=== PATIENT | male | born 1935 | race Caucasian/White ===

== ENCOUNTER → 2016-09-04 | Outpatient (CLI) | payer MEDICARE, OTHER ==
[~2016-09-04] MED LIST: ACET-2930 PO; FLEC50TA2 PO; HYDR-2164 PO; LEVO100T12 PO; METO25TA6 PO; PRED1TAB PO; RIVA20TA PO
--- NOTE | 2016-09-04 11:24 | DI ---
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 Postoperative changes noted in the right hilum. No consolidation, pleural effusion or pneumothorax. Heart size and mediastinal contours are stable. Pulmonary vascularity is normal. No significant skeletal abnormality. Impression: Stable chest without radiographic evidence of pulmonary metastatic disease. .
== END ==
LOC: IMA 10:47
PROVIDERS: ATTEND Internal Medicine Medical Oncology
DX: C34.11 Malignant neoplasm of upper lobe, right bronchus or lung (principal)

== ENCOUNTER 2016-12-04 08:00 | Observation (INO) ==
--- OUTSIDE RECORDS SUMMARY | 2017-01-08 07:58 | External Medical Summary | CCD ---
:1935 Author Name WILVERMATTHEWSUNNY Address [address] [place], [place] [id number] Care Team Providers Name Role Phone FRANCO TINOCO Attending Physician Unavailable Vital Signs Unknown or Not Available. Allergies Unknown or Not Available. Procedures Unknown or Not Available. History of Immunizations Unknown or Not Available. Problems Unknown or Not Available. Results Unknown or Not Available. Active Medications Unknown or Not Available. Medications Administered During Visit Unknown or Not Available. 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 Discharge Instructions You were admitted to [facility] on 10/02/2015 10:16 with a principal diagnosis of Presence of right artificial hip joint You were discharged from [facility] Should you have any questions prior to discharge, please contact a member of your healthcare team. If you have left the hospital and have any questions, please contact your primary care physician. Chief Complaint and Reason For Visit Chief Complaint Date of Onset PT Function Status Unknown or Not Available. Plan of Care Unknown or Not Available. Referral/Transition of Care Unknown or Not Available.
--- OUTSIDE RECORDS SUMMARY | 2017-01-08 07:58 | External Medical Summary | CCD ---
:1935 Author Name SUNNY PETTIT Address [address] [place], [place] [id number] Care Team Providers Name Role Phone NICOLE MORAN Attending Physician Unavailable Vital Signs Unknown or Not Available. Allergies Unknown or Not Available. Procedures Unknown or Not Available. History of Immunizations Unknown or Not Available. Problems Unknown or Not Available. Results FERRITIN - Collect Date/Time: 05/17/2015 09:40 Test Name Code Test Result Test Units Test Ref Range FERRITIN 118 ng/mL L=8 H=388 FOLATE (FOLIC ACID) - Collect Date/Time: 05/17/2015 09:40 Test Name Code Test Result Test Units Test Ref Range FOLATE 9.6 ng/mL L=8.6 H=58.9 IRON AND TIBC - Collect Date/Time: 05/17/2015 09:40 Test Name Code Test Result Test Units Test Ref Range IRON 46 ug/dL L=50 H=175 TIBC 331 ug/dL L=250 H=450 IRON SAT 14 % L=20 H=50 VITAMIN B12 - Collect Date/Time: 05/17/2015 09:40 Test Name Code Test Result Test Units Test Ref Range VITAMIN B12 579 pg/mL L=193 H=986 Active Medications Unknown or Not Available. Medications Administered During Visit Unknown or Not Available. Encounters Encounter Diagnosis Diagnosis Code Start Date Anemia, unspecified D649 05/17/2015 Social History Smoking Status Code Start Date End Date Former smoker [id number] Patient Decision Aids Unknown or Not Available. Discharge Instructions You were admitted to [facility] on 10/2015 with a principal diagnosis of Anemia, unspecified. You were discharged from [facility] on 05/17/2015. Should you have any questions prior to discharge, please contact a member of your healthcare team. If you have left the hospital and have any questions, please contact your primary care physician. Chief Complaint and Reason For Visit Chief Complaint Date of Onset LAB Function Status Unknown or Not Available. Plan of Care Unknown or Not Available. Referral/Transition of Care Unknown or Not Available.
--- OUTSIDE RECORDS SUMMARY | 2017-01-08 07:58 | External Medical Summary | CCD ---
:1935 Author Name DAMION VERDIN Address [address] [place], [place] [id number] Care Team Providers Name Role Phone JAMES YANES Attending Physician Unavailable NICOLE MORAN Rounding (Secondary) Physician Unavailable Vital Signs Unknown or Not Available. Allergies Unknown or Not Available. Procedures Unknown or Not Available. History of Immunizations Unknown or Not Available. Problems Unknown or Not Available. Results COMP METABOLIC - Collect Date/Time: 08/29/2014 10:15 Test Name Code Test Result Test Units Test Ref Range GLUCOSE 107 mg/dL L=70 H=110 BUN 11 mg/dL L=7 H=18 CREATININE 1.00 mg/dL L=0.60 H=1.30 AGE 79 YEARS GFR 76.6 SODIUM 139 mmol/L L=136 H=145 POTASSIUM 3.6 mmol/L L=3.5 H=5.1 CHLORIDE 101 mmol/L L=98 H=107 CO2 32 mmol/L L=21 H=32 CALCIUM 9.4 mg/dL L=8.5 H=10.1 AST 9 U/L L=15 H=37 ALT 17 U/L L=12 H=78 ALKALINE PHOS 125 U/L L=46 H=116 TOTAL PROTEIN 7.8 g/dL L=6.4 H=8.2 ALBUMIN 3.6 g/dL L=3.4 H=5.0 TOTAL BILI 0.50 mg/dL L=0.00 H=1.00 CBC W/ DIFF - Collect Date/Time: 08/29/2014 10:15 Test Name Code Test Result Test Units Test Ref Range WBC 10.0 x10^3 L=4.8 H=10.8 RBC 4.50 x10^6 L=4.70 H=6.10 HEMOGLOBIN 14.1 g/dL L=14.0 H=18.0 HEMATOCRIT 42.3 % L=42.0 H=52.0 MCV 94 fL L=80 H=100 MCH 31.4 pg L=27.0 H=33.0 MCHC 33.4 g/dL L=33.0 H=37.0 RDW 13.1 % L=11.5 H=14.5 PLATELETS 328 x10^3 L=150 H=450 MPV 6.7 fL L=7.8 H=11.0 NEUTROPHILS 70.9 % L=40.0 H=80.0 LYMPHOCYTES 18.7 % L=20.0 H=45.0 MONOCYTES 7.7 % L=0.0 H=10.0 EOSINOPHILS 2.2 % L=0.0 H=5.0 BASOPHILS 0.5 % L=0.0 H=2.0 SEG 63 %% L=40 H=80 BAND 8 %% L=0 H=5 LYMPH 20 %% L=20 H=45 MONO 6 %% L=0 H=10 EOS 0 %% L=0 H=5 BASO 3 %% L=0 H=2 ATYP LYMPH 0 %% L=0 H=10 META 0 %% L=0 H=1 REFLEX MAN DIFF YES N/A RBC MORPHOLOGY NORMAL N/A Active Medications Unknown or Not Available. Medications Administered During Visit Unknown or Not Available. Encounters Unknown or Not Available. Social History Smoking Status Code Start Date End Date Former smoker [id number] Patient Decision Aids Unknown or Not Available. Discharge Instructions You were admitted to [facility] on 08/29/2014. You were discharged from [facility] on 08/29/2014. Should you have any questions prior to discharge, please contact a member of your healthcare team. If you have left the hospital and have any questions, please contact your primary care physician. Chief Complaint and Reason For Visit Chief Complaint Date of Onset CT CHEST W CONTR/LAB Function Status Unknown or Not Available. Plan of Care Unknown or Not Available. Referral/Transition of Care Unknown or Not Available.
--- OUTSIDE RECORDS SUMMARY | 2017-01-08 07:58 | External Medical Summary | CCD ---
:1935 Author Name SUNNY PETTIT Address [address] [place], [place] [phone] Care Team Providers Name Role Phone PUNEET SORIANO Attending Physician Unavailable JENNIE BENDERing (Secondary) Physician Unavailable Vital Signs Unknown or Not Available. Allergies Unknown or Not Available. Procedures Unknown or Not Available. History of Immunizations Unknown or Not Available. Problems Unknown or Not Available. Results COMP METABOLIC - Collect Date/Time: 05/16/2016 10:31 Test Name Code Test Result Test Units Test Ref Range GLUCOSE 112 mg/dL L=70 H=110 BUN 14 mg/dL L=7 H=18 CREATININE 1.03 mg/dL L=0.60 H=1.30 AGE 80 YEARS GFR 69.5 L=60.0 H=120 SODIUM 137 mmol/L L=136 H=145 POTASSIUM 3.1 mmol/L L=3.5 H=5.1 CHLORIDE 101 mmol/L L=98 H=107 CO2 27 mmol/L L=21 H=32 CALCIUM 9.6 mg/dL L=8.5 H=10.1 AST 17 U/L L=15 H=37 ALT 19 U/L L=12 H=78 ALKALINE PHOS 121 U/L L=46 H=116 TOTAL PROTEIN 7.9 g/dL L=6.4 H=8.2 ALBUMIN 3.6 g/dL L=3.4 H=5.0 TOTAL BILI 0.50 mg/dL L=0.00 H=1.00 CBC W/ DIFF - Collect Date/Time: 05/16/2016 10:31 Test Name Code Test Result Test Units Test Ref Range WBC 10.3 x10^3 L=4.8 H=10.8 RBC 4.54 x10^6 L=4.70 H=6.10 HEMOGLOBIN 13.9 g/dL L=14.0 H=18.0 HEMATOCRIT 40.3 % L=42.0 H=52.0 MCV 89 fL L=80 H=100 MCH 30.6 pg L=27.0 H=33.0 MCHC 34.5 g/dL L=33.0 H=37.0 RDW 12.9 % L=11.5 H=14.5 PLATELETS 323 x10^3 L=150 H=450 MPV 6.9 fL L=7.8 H=11.0 NEUTROPHILS 64.2 % L=40.0 H=80.0 LYMPHOCYTES 22.9 % L=20.0 H=45.0 MONOCYTES 8.8 % L=0.0 H=10.0 EOSINOPHILS 3.4 % L=0.0 H=5.0 BASOPHILS 0.7 % L=0.0 H=2.0 REFLEX MAN DIFF NO N/A UA AUTO W/ MICRO - Collect Date/Time: 05/16/2016 10:40 Test Name Code Test Result Test Units Test Ref Range COLOR Yellow N/A NORMAL: Yellow APPEARANCE Clear N/A NORMAL: Clear GLUCOSE Negative N/A NORMAL: Negative BILIRUBIN Negative N/A NORMAL: Negative KETONE Negative N/A NORMAL: Negative SPEC GRAVITY 1.020 N/A NORMAL: 1.005-1.030 BLOOD Trace-in N/A NORMAL: Negative PROTEIN Negative N/A NORMAL: Negative PH 7.5 N/A NORMAL: 5.0-8.0 UROBILINOGEN 2.0 N/A NORMAL: Negative NITRITE Negative N/A NORMAL: Negative LEUKOCYTES Negative N/A NORMAL: Negative MICRO RBC None Seen N/A NORMAL: 0-2 MICRO WBC 0-2 N/A NORMAL: 0-2 BACTERIA None Seen N/A NORMAL: None-Trace EPI CELLS None Seen N/A NORMAL: 0-15 MUCUS None Seen N/A NORMAL: None-Small AMORPHOUS None Seen N/A NORMAL: None Seen YEAST None Seen N/A NORMAL: None Seen CRYSTALS None Seen N/A NORMAL: None Seen CAST None Seen N/A NORMAL: None Seen URINE CULTURE? NO N/A Active Medications Unknown or Not Available. Medications Administered During Visit Unknown or Not Available. 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 Discharge Instructions You were admitted to [facility] on 05/16/2016 10:26 with a principal diagnosis of Malignant neoplasm of upper lobe , right bronchus or jad You had the following tests done: CBC W/ DIFF COMP METABOLIC UA AUTO W/ MICRO You were discharged from [facility] on 05/16/2016 10:26 Should you have any questions prior to [...]
--- OUTSIDE RECORDS SUMMARY | 2017-01-08 07:58 | External Medical Summary | Continuity of Care Document ---
:1935 Author Organization [facility] Allergies Active Description Code Type Severity Reaction Onset Reported/ Identified Relationship Clinical to Patient Status Yes Pepto-Bismol NKMA N/A N/A Yes statins NKMA N/A N/A Yes bismuth 1159 1 N/A rash, subsalicylat swelling e Yes Statins-Hmg- 02685 3 N/A muscle, Coa 5 joint Reductase pain Inhibitors Medications Problems Procedures Results Encounters ACCT No. Visit Discharge Status Pt. Type Provider Facility Loc./Unit Complaint Date/Time [id number] 06/16/2015 06/16/2015 DIS [facility] [place], [facility] [place] [facility] 13:55:00 23:59[id number] 05/26/2015 05/26/2015 DIS Outpatien [place], [facility] [place] 396 14:03:00 23:59:00 t [facility] [id number] 01/24/2016 01/24/2016 CLS Outpat[facility] [place] 10:15:00 23:59:59 t [facility] [id number] 06/25/2016 ACT Unknown [id number] 09:38:00 [id number] 03/18/2016 ACT Unknown [id number] 14:04:00 [id number] 03/18/2016 ACT Unknown [id number] 13:54:00 [id number] 10/18/2015 ACT Unknown [id number] 08:35:00 [id number] 10/05/2015 ACT Unknown [id number] 07:36:00 [id number] 09/13/2015 ACT Unknown [id number] 11:00:00 [id number] 08/24/2015 ACT Unknown [id number] 15:06:00 [id number] 06/02/2015 ACT Unknown [id number] 12:49:00 [id number] 08/10/2014 ACT Unknown [id number] 10:33:00 [id number] 08/10/2014 ACT Unknown [id number] 10:23:00 [id number] 06/09/2014 ACT Unknown [id number] 12:48:00 [id number] 02/07/2014 ACT Unknown [id number] 11:23:00 [id number] 12/17/2013 ACT Unknown [id number] 10:47:00 [id number] 09/21/2013 ACT Unknown [id number] 10:08:00 [id number] 06/17/2013 ACT Unknown [id number] 13:38:00 [id number] 03/18/2013 ACT Unknown [id number] 09:15:00 [id number] 02/24/2013 ACT Unknown [id number] 09:02:00
--- OUTSIDE RECORDS SUMMARY | 2017-01-08 07:58 | External Medical Summary | CCD ---
:1935 Author Name WILVERMATTHEWSUNNY Address [address] [place], [place] [phone] Care Team Providers Name Role Phone SCOOTER KUMAR Attending Physician Unavailable Vital Signs Unknown or Not Available. Allergies Unknown or Not Available. Procedures Unknown or Not Available. History of Immunizations Unknown or Not Available. Problems Unknown or Not Available. Results Unknown or Not Available. Active Medications Unknown or Not Available. Medications Administered During Visit Unknown or Not Available. Encounters Encounter Diagnosis Diagnosis Code Start Date Stiffness of right knee, not S33444 02/13/2015 elsewhere classified Social History Smoking Status Code Start Date End Date Former smoker [id number] Patient Decision Aids Unknown or Not Available. Discharge Instructions You were admitted to [facility] on 09/2014 with a principal diagnosis of Stiffness of right knee, not elsewhere classified. Should you have any questions prior to discharge, please contact a member of your healthcare team. If you have left the hospital and have any questions, please contact your primary care physician. Chief Complaint and Reason For Visit Chief Complaint Date of Onset PHY THER Function Status Unknown or Not Available. Plan of Care Unknown or Not Available. Referral/Transition of Care Unknown or Not Available.
--- OUTSIDE RECORDS SUMMARY | 2017-01-08 07:58 | External Medical Summary | CCD ---
:1935 Author Name DAMION VERDIN Address [address] [place], [place] [id number] Care Team Providers Name Role Phone GISELA RAYMUNDO Attending Physician Unavailable NICOLE MORAN Rounding (Secondary) [...] Code Start Date End Date Former smoker [id number] Patient Decision Aids Unknown or Not Available. Discharge Instructions You were admitted to [facility] on 08/30/2014. Should you have any questions prior to discharge, please contact a member of your healthcare team. If you have left the hospital and have any questions, please contact your primary care physician. Chief Complaint and Reason For Visit Chief Complaint Date of Onset MRI BRAIN W/O CONT Function Status Unknown or Not Available. Plan of Care Unknown or Not Available. Referral/Transition of Care Unknown or Not Available.
--- OUTSIDE RECORDS SUMMARY | 2017-01-08 07:58 | External Medical Summary | CCD ---
:1935 Author Name SUNNY PETTIT Address [address] [place], [place] [phone] Care Team Providers Name Role Phone PUNEET SORIANO Attending Physician Unavailable Vital Signs Unknown or Not Available. Allergies Unknown or Not Available. Procedures Unknown or Not Available. History of Immunizations Unknown or Not Available. Problems Unknown or Not Available. Results THYROXINE (T4) FREE - Collect Date/Time: 09/22/2015 08:51 Test Name Code Test Result Test Units Test Ref Range FT4 1.06 ng/dL L=0.76 H=1.46 TSH - Collect Date/Time: 09/22/2015 08:51 Test Name Code Test Result Test Units Test Ref Range TSH 0.98 uIU/mL L=0.36 H=3.74 Active Medications Unknown or Not Available. Medications Administered During Visit Unknown or Not Available. Encounters Encounter Diagnosis Diagnosis Code Start Date Hypothyroidism, unspecified E039 09/22/2015 Social History Smoking Status Code Start Date End Date Former smoker [id number] Patient Decision Aids Unknown or Not Available. Discharge Instructions You were admitted to [facility] on 09/22/2015 08:45 with a principal diagnosis of Hypothyroidism, unspecified You had the following tests done: THYROXINE (T4) FREE TSH You were discharged from [facility] on 09/22/2015 08:45 Should you have any questions prior to [...]
--- OUTSIDE RECORDS SUMMARY | 2017-01-08 07:58 | External Medical Summary | CCD ---
:1935 Author Name SUNNY PETTIT Address [address] [place], [place] [address] Care Team Providers Name Role Phone JUAN CARLOS ARDON, MICHEL Flores Attending Physician Unavailable Vital Signs Unknown or Not Available. Allergies Unknown or Not Available. Procedures Unknown or Not Available. History of Immunizations Unknown or Not Available. Problems Unknown or Not Available. Results COMP METABOLIC - Collect Date/Time: 08/09/2015 13:40 Test Name Code Test Result Test Units Test Ref Range GLUCOSE 110 mg/dL L=70 H=110 BUN 17 mg/dL L=7 H=18 CREATININE 1.05 mg/dL L=0.60 H=1.30 AGE 80 YEARS GFR 68.0 SODIUM 137 mmol/L L=136 H=145 POTASSIUM 3.7 mmol/L L=3.5 H=5.1 CHLORIDE 101 mmol/L L=98 H=107 CO2 28 mmol/L L=21 H=32 CALCIUM 9.2 mg/dL L=8.5 H=10.1 AST 17 U/L L=15 H=37 ALT 25 U/L L=12 H=78 ALKALINE PHOS 148 U/L L=46 H=116 TOTAL PROTEIN 7.8 g/dL L=6.4 H=8.2 ALBUMIN 3.8 g/dL L=3.4 H=5.0 TOTAL BILI 0.40 mg/dL L=0.00 H=1.00 CBC W/ DIFF - Collect Date/Time: 08/09/2015 13:40 Test Name Code Test Result Test Units Test Ref Range WBC 10.5 x10^3 L=4.8 H=10.8 RBC 4.59 x10^6 L=4.70 H=6.10 HEMOGLOBIN 13.6 g/dL L=14.0 H=18.0 HEMATOCRIT 40.6 % L=42.0 H=52.0 MCV 88 fL L=80 H=100 MCH 29.6 pg L=27.0 H=33.0 MCHC 33.5 g/dL L=33.0 H=37.0 RDW 14.2 % L=11.5 H=14.5 PLATELETS 359 x10^3 L=150 H=450 MPV 6.6 fL L=7.8 H=11.0 NEUTROPHILS 74.5 % L=40.0 H=80.0 LYMPHOCYTES 17.1 % L=20.0 H=45.0 MONOCYTES 6.8 % L=0.0 H=10.0 EOSINOPHILS 1.2 % L=0.0 H=5.0 BASOPHILS 0.4 % L=0.0 H=2.0 REFLEX MAN DIFF NO N/A UA AUTO W/ MICRO - Collect Date/Time: 08/09/2015 13:44 Test Name Code Test Result Test Units Test Ref Range COLOR Yellow N/A NORMAL: Yellow APPEARANCE Clear N/A NORMAL: Clear GLUCOSE Negative N/A NORMAL: Negative BILIRUBIN Negative N/A NORMAL: Negative KETONE Negative N/A NORMAL: Negative SPEC GRAVITY 1.020 N/A NORMAL: 1.005-1.030 BLOOD Negative N/A NORMAL: Negative PROTEIN Negative N/A NORMAL: Negative PH 7.5 N/A NORMAL: 5.0-8.0 UROBILINOGEN 1.0 N/A NORMAL: Negative NITRITE Negative N/A NORMAL: Negative LEUKOCYTES Negative N/A NORMAL: Negative MICRO RBC None Seen N/A NORMAL: 0-2 MICRO WBC 0-2 N/A NORMAL: 0-2 BACTERIA None Seen N/A NORMAL: None-Trace EPI CELLS 0-5 N/A NORMAL: 0-15 MUCUS None Seen N/A [...] Diagnosis Code Start Date Anemia, unspecified D649 08/09/2015 Social History Smoking Status Code Start Date End Date Former smoker [id number] Patient Decision Aids Unknown or Not Available. Discharge Instructions You were admitted to [facility] on 08/09/2015 13:35 with a principal diagnosis of Anemia, unspecified You had the following tests done: CBC W/ DIFF COMP METABOLIC UA AUTO W/ MICRO You were discharged from [facility] on 08/09/2015 13:35 Should you have any questions prior to [...]
--- OUTSIDE RECORDS SUMMARY | 2017-01-08 07:58 | External Medical Summary | Summary of Care ---
:1935 Author Name Mike Ng M.D. 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, 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 Medications Name Dates Details Acetaminophen 500 MG Oral Tablet Refills: 0 Started 20-Apr-2015 ActiveHydrochlorothiazide 25 MG Oral Tablet Refills: 0 Started 20-Apr-2015 ActiveVitamin D 2000 UNIT Oral Tablet Refills: 0 Started 20-Apr-2015 ActiveXarelto 15 MG Oral Tablet Refills: 0 Started 20-Apr-2015 ActivePredniSONE 5 MG/5ML Oral Solution Refills: 0 Started 20-Apr-2015 ActiveLevothyroxine Sodium 100 MCG Oral Tablet Refills: 0 Started 20-Apr-2015 Active Allergies and Adverse Reactions Name Dates Details Pepto-Bismol Reaction: Hives (Severe) Status: Active Pravastatin Sodium TABS Reaction: Myalgia Status: Active Statins Status: Active Procedures Procedure Dates Details History of Cataract Surgery History of Knee Surgery History of Lung Surgery Procedures not documented Immunization Name Dates Details Immunizations not documented Family History Mother Name Dates Details Family history of malignant neoplasm of breast (V16.3, Z80.3) Status: Active Father Name Dates Details Family history of lung disease (V19.8, Z83.6) Status: Active Family history of lung cancer (V16.1, Z80.1) Status: Active Social History Name Dates Details Smoking StatusFormer smoker Vital Signs Date Test Result Details 18-May-2015 10:25 Temperature 97 f Status: Heart Rate 72 /min Status: Weight 229 lb Status: Results Date Description Value Details Results not documented Plan of Care Planned Observations Name Dates Details Planned Goals not documented Goal Instructions Instructions not documented Encounters Appointment; Piter Ng On 18-May-2015 Encounter Diagnosis: Problem not documented 10:15
--- OUTSIDE RECORDS SUMMARY | 2017-01-08 07:58 | External Medical Summary | CCD ---
:1935 Author Name DAMION VERDIN Address [address] [place], [place] [address] Care Team Providers Name Role Phone NICOLE MORAN Attending Physician Unavailable Vital Signs Unknown or Not Available. Allergies Unknown or Not Available. Procedures Unknown or Not Available. History of Immunizations Unknown or Not Available. Problems Unknown or Not Available. Results TSH - Collect Date/Time: 09/20/2014 10:50 Test Name Code Test Result Test Units Test Ref Range TSH 1.76 uIU/mL L=0.36 H=3.74 Active Medications Unknown or Not Available. Medications Administered During Visit Unknown or Not Available. Encounters Encounter Diagnosis Diagnosis Code Start Date HYPOTHYROIDISM NOS 2449 09/20/2014 Social History Smoking Status Code Start Date End Date Former smoker [id number] Patient Decision Aids Unknown or Not Available. Discharge Instructions You were admitted to [facility] on 04/2015 with a principal diagnosis of HYPOTHYROIDISM NOS. You were discharged from [facility] on 09/20/2014. Should you have any questions prior to discharge, please contact a member of your healthcare team. If you have left the hospital and have any questions, please contact your primary care physician. Chief Complaint and Reason For Visit Unknown or Not Available. Function Status Unknown or Not Available. Plan of Care Unknown or Not Available. Referral/Transition of Care Unknown or Not Available.
--- OUTSIDE RECORDS SUMMARY | 2017-01-08 07:58 | External Medical Summary | CCD ---
:1935 Author Name SUNNY PETTIT Address [address] [place], [place] [id number] Care Team Providers Name Role Phone PUNEET SORIANO Attending Physician Unavailable Vital Signs Unknown or Not Available. Allergies Unknown or Not Available. Procedures Unknown or Not Available. History of Immunizations Unknown or Not Available. Problems Unknown or Not Available. Results COMP METABOLIC - Collect Date/Time: 12/06/2015 08:37 Test Name Code Test Result Test Units Test Ref Range GLUCOSE 105 mg/dL L=70 H=110 BUN 13 mg/dL L=7 H=18 CREATININE 0.91 mg/dL L=0.60 H=1.30 AGE 80 YEARS GFR 80.2 SODIUM 138 mmol/L L=136 H=145 POTASSIUM 3.3 mmol/L L=3.5 H=5.1 CHLORIDE 101 mmol/L L=98 H=107 CO2 28 mmol/L L=21 H=32 CALCIUM 9.3 mg/dL L=8.5 H=10.1 AST 16 U/L L=15 H=37 ALT 18 U/L L=12 H=78 ALKALINE PHOS 148 U/L L=46 H=116 TOTAL PROTEIN 7.9 g/dL L=6.4 H=8.2 ALBUMIN 3.7 g/dL L=3.4 H=5.0 TOTAL BILI 0.40 mg/dL L=0.00 H=1.00 LIPID PANEL - Collect Date/Time: 12/06/2015 08:37 Test Name Code Test Result Test Units Test Ref Range CHOLESTEROL 227 mg/dL L=0 H=200 TRIGLYCERIDES 197 mg/dL L=30 H=150 HDL 46 mg/dL L=40 H=60 LDL, CALC 142 mg/dL L=0 H=100 VLDL 39 mg/dL L=0 H=40 CHOL/HDL RISK 4.9 RATIO L=0.0 H=5.0 PT FASTING: YES N/A CBC W/ DIFF - Collect Date/Time: 12/06/2015 08:37 Test Name Code Test Result Test Units Test Ref Range WBC 9.2 x10^3 L=4.8 H=10.8 RBC 4.64 x10^6 L=4.70 H=6.10 HEMOGLOBIN 13.9 g/dL L=14.0 H=18.0 HEMATOCRIT 42.1 % L=42.0 H=52.0 MCV 91 fL L=80 H=100 MCH 29.9 pg L=27.0 H=33.0 MCHC 33.0 g/dL L=33.0 H=37.0 RDW 13.6 % L=11.5 H=14.5 PLATELETS 388 x10^3 L=150 H=450 MPV 6.9 fL L=7.8 H=11.0 SEG 58 %% L=40 H=80 BAND 4 %% L=0 H=5 LYMPH 16 %% L=20 H=45 MONO 13 %% L=0 H=10 EOS 6 %% L=0 H=5 BASO 1 %% L=0 H=2 ATYP LYMPH 2 %% L=0 H=10 META 0 %% L=0 H=1 REFLEX MAN DIFF YES N/A RBC MORPHOLOGY NORMAL N/A Active Medications Unknown or Not Available. Medications Administered During Visit Unknown or Not Available. Encounters Encounter Diagnosis Diagnosis Code Start Date Anemia, unspecified D649 12/06/2015 Social History Smoking Status Code Start Date End Date Former smoker [id number] Patient Decision Aids Unknown or Not Available. Discharge Instructions You were admitted to [facility] on 12/06/2015 08:27 with a principal diagnosis of Anemia, unspecified You had the following tests done: CBC W/ DIFF COMP METABOLIC LIPID PANEL You were discharged from [facility] on 12/06/2015 08:27 Should you have any questions prior to [...]
--- OUTSIDE RECORDS SUMMARY | 2017-01-08 07:58 | External Medical Summary | CCD ---
:1935 Author Name SUNNY PETTIT Address [address] [place], [place] [id number] Care Team Providers Name Role Phone PUNEET SORIANO Attending Physician Unavailable Vital Signs Unknown or Not Available. Allergies Unknown or Not Available. Procedures Unknown or Not Available. History of Immunizations Unknown or Not Available. Problems Unknown or Not Available. Results BASIC METABOLIC - Collect Date/Time: 02/05/2016 15:50 Test Name Code Test Result Test Units Test Ref Range GLUCOSE 154 mg/dL L=70 H=110 BUN 15 mg/dL L=7 H=18 CREATININE 0.97 mg/dL L=0.60 H=1.30 AGE 80 YEARS GFR 74.5 SODIUM 136 mmol/L L=136 H=145 POTASSIUM 3.2 mmol/L L=3.5 H=5.1 CHLORIDE 98 mmol/L L=98 H=107 CO2 29 mmol/L L=21 H=32 CALCIUM 9.2 mg/dL L=8.5 H=10.1 CBC W/ DIFF - Collect Date/Time: 02/05/2016 15:50 Test Name Code Test Result Test Units Test Ref Range WBC 9.7 x10^3 L=4.8 H=10.8 RBC 4.65 x10^6 L=4.70 H=6.10 HEMOGLOBIN 13.8 g/dL L=14.0 H=18.0 HEMATOCRIT 41.0 % L=42.0 H=52.0 MCV 88 fL L=80 H=100 MCH 29.6 pg L=27.0 H=33.0 MCHC 33.6 g/dL L=33.0 H=37.0 RDW 12.9 % L=11.5 H=14.5 PLATELETS 369 x10^3 L=150 H=450 MPV 7.1 fL L=7.8 H=11.0 NEUTROPHILS 58.0 % L=40.0 H=80.0 LYMPHOCYTES 27.4 % L=20.0 H=45.0 MONOCYTES 8.5 % L=0.0 H=10.0 EOSINOPHILS 5.3 % L=0.0 H=5.0 BASOPHILS 0.8 % L=0.0 H=2.0 REFLEX MAN DIFF NO N/A OCCULT BLOOD STOOL IMMUNOASSAY - Collect Date/Time: 02/08/2016 12:00 Test Name Code Test Result Test Units Test Ref Range OCC BLOOD IM POSITIVE N/A NORMAL: NEGATIVE Active Medications Unknown or Not Available. Medications Administered During Visit Unknown or Not Available. Encounters Encounter Diagnosis Diagnosis Code Start Date Hypokalemia E876 02/05/2016 Social History Smoking Status Code Start Date End Date Former smoker [id number] Patient Decision Aids Unknown or Not Available. Discharge Instructions You were admitted to [facility] on 02/05/2016 15:40 with a principal diagnosis of Hypokalemia You had the following tests done: BASIC METABOLIC CBC W/ DIFF OCCULT BLOOD STOOL IMMUNOASSAY You were discharged from [facility] on 02/08/2016 13:58 Should you have any questions prior to [...]
--- OUTSIDE RECORDS SUMMARY | 2017-01-08 07:58 | External Medical Summary | Referral Summary ---
:1935 Author Organization [facility] Address [address] [place] [address] K[place]LESH Laboy [address] Care Team Providers Name Role Phone No PCP, States Primary Care Physician Encounter VC Date(s): 05/26/15 - 05/26/15 [facility] [address] [place] [address] [place] [phone] [place] Discharge Diagnosis: Coronary artery disease Discharge Diagnosis: Hematuria Discharge Disposition: 01-Home or Self Care Attending Physician: Tahir Brooks JR, MD Admitting Physician: Tahir Brooks JR, MD Vital Signs Most recent to oldest [Reference Range]: 1 Peripheral Pulse Rate [60-100 bpm] 96 bpm (05/26/15 2:24 PM) Blood Pressure [90-140/60-90 mmHg] 150/78 mmHg *HI* (05/26/15 2:24 PM) Problem List No data available for this section Allergies, Adverse Reactions, Alerts Substance Reaction Severity Status Pepto-Bismol Active statins Active Medications Aspirin Low Dose mg, Oral, Daily, 0 Refill(s) Start Date: 05/26/15 Status: Orderedferrous sulfate Oral, 0 Refill(s) Start Date: 05/26/15 Status: OrderedHome Oxygen (DME) See Instructions, # 1 Each, 0 Refill(s), Supply Start Date: 05/26/15 Status: Orderedhydrochlorothiazide 25 mg oral tablet mg tabs, Oral, Daily, 0 Refill(s) Start Date: 05/26/15 Status: Orderedlevothyroxine 100 mcg (0.1 mg) oral tablet mcg tabs, Oral, Daily, 0 Refill(s) Start Date: 05/26/15 Status: OrderedpredniSONE 5 mg oral tablet mg tabs, Oral, Daily, 0 Refill(s) Start Date: 05/26/15 Status: OrderedTylenol PM mL, Oral, Bedtime (once a day), 0 Refill(s) Start Date: 05/26/15 Status: OrderedVitamin D3 0 Refill(s) Start Date: 05/26/15 Status: Ordered Results No data available for this section Immunizations No data available for this section Procedures No data available for this section Social History Social History Type Response Smoking Status Former smoker1 1Stopped in 1977 Assessment and Plan Extracted from: Title: Ambulatory Patient Education Author: Tahir Brooks JR, MD Date: Follow Up With: Where: When: Pt States No PCP [address] [place] [address] Business (1) Within 3 to 5 days Comments: Follow Up With: Where: When: Tahir Brooks [address] [place] [address] Drive; [place] [address] Business (1) In 2 weeks 06/09/2015 Comments: Extracted from: Title: Office Visit Note Author: Tahir Brooks JR, MD Date: 05/26/15 Assessment/Plan 1.Coronary artery disease He is to take Xareltobuthis family doctor [place] to entericbaby aspirin. He is taking baby aspirin instead of the other medication. Number 2 problem isgross painless hematuriaI ordered a CAT scan of abdomen and pelviswithout contrastand then schedule for cystoscopy possible bladder biopsy 5 days after theCAT scan is done . Patient needs to be off baby aspirin 7 days before the planned procedure. Bleeding in his bladder could be due totheaspirin he is taking(drug- induced) Hematuria Ordered: Office Visit Level 4 New [id number] Urinalysis with Culture if Indicated
--- OUTSIDE RECORDS SUMMARY | 2017-01-08 07:58 | External Medical Summary | CCD ---
:1935 Author Name DAMION VERDIN Address [address] [place], [place] [id number] Care Team Providers Name Role Phone NICOLE MORAN Attending Physician Unavailable Vital Signs Unknown or Not Available. Allergies Unknown or Not Available. Procedures Unknown or Not Available. History of Immunizations Unknown or Not Available. Problems Unknown or Not Available. Results THYROXINE (T4) FREE - Collect Date/Time: 07/26/2014 09:45 Test Name Code Test Result Test Units Test Ref Range FT4 1.11 ng/dL L=0.76 H=1.46 TSH - Collect Date/Time: 07/26/2014 09:45 Test Name Code Test Result Test Units Test Ref Range TSH 4.18 uIU/mL L=0.36 H=3.74 Active Medications Unknown or Not Available. Medications Administered During Visit Unknown or Not Available. Encounters Encounter Diagnosis Diagnosis Code Start Date HYPOTHYROIDISM NOS 2449 07/26/2014 Social History Smoking Status Code Start Date End Date Former smoker [id number] Patient Decision Aids Unknown or Not Available. Discharge Instructions You were admitted to [facility] on with a principal diagnosis of HYPOTHYROIDISM NOS. You were discharged from [facility] on 07/26/2014. Should you have any questions prior to [...]
--- OUTSIDE RECORDS SUMMARY | 2017-01-08 07:58 | External Medical Summary | CCD ---
:1935 Author Name DAMION VERDIN Address [address] [place], [place] [id number] Care Team Providers Name Role Phone NICOLE MORAN Attending Physician Unavailable Vital Signs Unknown or Not Available. Allergies Unknown or Not Available. Procedures Unknown or Not Available. History of Immunizations Unknown or Not Available. Problems Unknown or Not Available. Results LIPID PANEL - Collect Date/Time: 07/22/2014 14:15 Test Name Code Test Result Test Units Test Ref Range CHOLESTEROL 202 mg/dL L=0 H=200 TRIGLYCERIDES 248 mg/dL L=30 H=150 HDL 40 mg/dL L=40 H=60 LDL, CALC 112 mg/dL L=0 H=100 VLDL 50 mg/dL L=0 H=40 CHOL/HDL RISK 5.1 RATIO L=0.0 H=5.0 PT FASTING: NO N/A PSA - Collect Date/Time: 07/22/2014 14:15 Test Name Code Test Result Test Units Test Ref Range PSA 0.37 ng/mL L=0.00 H=4.00 UA AUTO W/ MICRO - Collect Date/Time: 07/22/2014 14:15 Test Name Code Test Result Test Units [...] LEUKOCYTES Negative N/A NORMAL: Negative MICRO RBC 0-2 N/A NORMAL: 0-2 MICRO WBC None Seen N/A NORMAL: 0-2 BACTERIA None Seen N/A [...] Encounters Encounter Diagnosis Diagnosis Code Start Date HEMATURIA UNSPECIFIED 27207 07/22/2014 Social History Smoking Status Code Start Date End Date Former smoker [id number] Patient Decision Aids Unknown or Not Available. Discharge Instructions You were admitted to [facility] on with a principal diagnosis of HEMATURIA UNSPECIFIED. You were discharged from [facility] on 07/22/2014. Should you have any questions prior to [...]
--- OUTSIDE RECORDS SUMMARY | 2017-01-08 07:58 | External Medical Summary | CCD ---
:1935 Author Name SUNNY PETTIT Address [address] [place], [place] [phone] Care Team Providers Name Role Phone JAMES YANES Attending Physician Unavailable FRANCO TINOCOing (Secondary) Physician Unavailable Vital Signs Unknown or Not Available. Allergies Unknown or Not Available. Procedures Unknown or Not Available. History of Immunizations Unknown or Not Available. Problems Unknown or Not Available. Results COMP METABOLIC - Collect Date/Time: 08/29/2015 09:45 Test Name Code Test Result Test Units Test Ref Range GLUCOSE 90 mg/dL L=70 H=110 BUN 13 mg/dL L=7 H=18 CREATININE 0.91 mg/dL L=0.60 H=1.30 AGE 80 YEARS GFR 80.2 SODIUM 139 mmol/L L=136 H=145 POTASSIUM 3.3 mmol/L L=3.5 H=5.1 CHLORIDE 100 mmol/L L=98 H=107 CO2 30 mmol/L L=21 H=32 CALCIUM 9.6 mg/dL L=8.5 H=10.1 AST 18 U/L L=15 H=37 ALT 25 U/L L=12 H=78 ALKALINE PHOS 142 U/L L=46 H=116 TOTAL PROTEIN 8.2 g/dL L=6.4 H=8.2 ALBUMIN 3.9 g/dL L=3.4 H=5.0 TOTAL BILI 0.50 mg/dL L=0.00 H=1.00 CBC W/ DIFF - Collect Date/Time: 08/29/2015 09:45 Test Name Code Test Result Test Units Test Ref Range WBC 9.9 x10^3 L=4.8 H=10.8 RBC 4.68 x10^6 L=4.70 H=6.10 HEMOGLOBIN 14.1 g/dL L=14.0 H=18.0 HEMATOCRIT 42.5 % L=42.0 H=52.0 MCV 91 fL L=80 H=100 MCH 30.1 pg L=27.0 H=33.0 MCHC 33.2 g/dL L=33.0 H=37.0 RDW 13.8 % L=11.5 H=14.5 PLATELETS 346 x10^3 L=150 H=450 MPV 7.3 fL L=7.8 H=11.0 NEUTROPHILS 56.9 % L=40.0 H=80.0 LYMPHOCYTES 28.1 % L=20.0 H=45.0 MONOCYTES 10.3 % L=0.0 H=10.0 EOSINOPHILS 3.6 % L=0.0 H=5.0 BASOPHILS 1.1 % L=0.0 H=2.0 REFLEX MAN DIFF NO N/A PT/INR - Collect Date/Time: 08/29/2015 09:45 Test Name Code Test Result Test Units Test Ref Range PT 9.4 Secs L=9.2 H=10.8 INR 0.94 L=0.00 H=4.00 PTT - Collect Date/Time: 08/29/2015 09:45 Test Name Code Test Result Test Units Test Ref Range PTT 24.8 Secs L=22.0 H=30.0 UA AUTO W/ MICRO - Collect Date/Time: 08/29/2015 09:45 Test Name Code Test Result Test Units Test Ref Range COLOR Yellow N/A NORMAL: Yellow APPEARANCE Clear N/A NORMAL: Clear GLUCOSE Negative N/A NORMAL: Negative BILIRUBIN Negative N/A NORMAL: Negative KETONE Negative N/A NORMAL: Negative SPEC GRAVITY 1.020 N/A NORMAL: 1.005-1.030 BLOOD Negative N/A NORMAL: Negative PROTEIN Negative N/A NORMAL: Negative PH 5.5 N/A NORMAL: 5.0-8.0 UROBILINOGEN 0.2 N/A NORMAL: Negative NITRITE Negative N/A NORMAL: Negative LEUKOCYTES Negative N/A NORMAL: Negative MICRO RBC 0-2 N/A NORMAL: 0-2 MICRO WBC None Seen N/A NORMAL: 0-2 BACTERIA None Seen N/A NORMAL: None-Trace EPI CELLS None Seen N/A NORMAL: 0-15 MUCUS Small N/A NORMAL: None-Small AMORPHOUS None Seen N/A NORMAL: None Seen YEAST None Seen N/A NORMAL: None Seen CRYSTALS None Seen N/A NORMAL: None Seen CAST None Seen N/A NORMAL: None Seen URINE CULTURE? NO N/A Active Medications Unknown or Not Available. Medications Administered During Visit Unknown or Not Available. Encounters Encounter Diagnosis Diagnosis Code Start Date Encounter for other preprocedural [id number] 08/29/2015 examination Social History Smoking Status Code Start Date End Date Former smoker [id number] Patient Decision Aids Unknown or Not Available. Discharge Instructions You were admitted to [facility] on 08/29/2015 09:29 with a principal diagnosis of Encounter for other preprocedural examination You had the following tests done: CBC W/ DIFF COMP METABOLIC PT/INR PTT UA AUTO W/ MICRO You were discharged from [facility] on 08/29/2015 09:30 Should you have any questions prior to discharge, please contact a member of your healthcare team. If you have left the hospital and have any questions, please contact your primary care physician. Chief Complaint and Reason For Visit Chief Complaint Date of Onset CT CHEST W CONTR LAB Function Status Unknown or Not Available. Plan of Care Unknown or Not Available. Referral/Transition of Care Unknown or Not Available.
--- OUTSIDE RECORDS SUMMARY | 2017-01-08 07:58 | External Medical Summary | Referral Summary ---
:1935 Author Organization [facility] Address [address] [place] [address] [place] Laboy [address] Care Team Providers Name Role Phone Janie Oakley Primary Care Physician Encounter VC Date(s): 06/16/15 - 06/16/15 [facility] [address] [place] [address] [place] [phone] [place] Discharge Disposition: 01-Home or Self Care Attending Physician: Tahir Brooks JR, MD Admitting Physician: Tahir Brooks JR, MD Vital Signs Most recent to oldest [Reference Range]: 1 Peripheral Pulse Rate [60-100 bpm] 100 bpm (06/16/15 2:18 PM) Blood Pressure [90-140/60-90 mmHg] 142/80 mmHg *HI* (06/16/15 2:18 PM) Problem List No data available for this section Allergies, Adverse Reactions, Alerts Substance Reaction Severity Status Pepto-Bismol Active statins Active Medications Aspirin Low Dose mg, Oral, Daily, 0 Refill(s) Start Date: 05/26/15 Status: Orderedferrous sulfate Oral, 0 Refill(s) Start Date: 05/26/15 Status: Orderedfinasteride 5 mg oral tablet mg tabs, Oral, Daily, 0 Refill(s) Start Date: 06/16/15 Status: OrderedHome Oxygen (DME) See Instructions, # [...] No data available for this section Procedures Procedure Date Related Diagnosis Body Site Arthroscopy Extraction of cataract Knee replacement LASIK Surgery1 Vasectomy 1Removal right upper lobe of lung. Social History Social History Type Response Smoking Status Former smoker1 1Stopped in 1977 Assessment and Plan No data available for this section
[2017-01-08 08:31] VITALS: BMI 33.9
[2017-01-08] MEDS: AMIODARONE 200 MG TABLET PO SCH ×2 (09:52→20:30)
--- NOTE | 2017-01-08 12:20 | Cardiology History & Physical ---
History of Present Illness Chief complaint: palpitations HPI: Benjie is a 81 year old male who is well known to Dr. Garcias with a history of paroxysmal atrial fibrillation, CAD, PVCs, HTN, HLD and DIMAS. Holter monitor done in November showed HR from 50-130, PACs PAT, and A Fib. He is being admitted today to observation to Dr. Garcias for antiarrhythmic therapy on Amiodarone. Review of Systems - Constitutional Constitutional: Absent: chills, fatigue, fever(s), weakness - EENMT Eyes: Absent: change in vision Balance: Absent: vertigo Mouth/Throat: Absent: sore throat - Cardiovascular Cardiovascular: Absent: chest pain, palpitations, syncope, dyspnea on exertion, orthopnea Rhythm: Present: regular rhythm - Respiratory Respiratory: Absent: cough, dyspnea - Gastrointestinal Gastrointestinal: Absent: abdominal pain, constipation, nausea, vomiting - Genitourinary Genitourinary: Absent: dysuria - Integumentary/Breasts Integumentary: Absent: rash - Neurological Neurological: Absent: dizziness - Endocrine Endocrine: Absent: palpitations PFSH Patient Stated Medical History Cataracts Yes Hearing Loss Yes Cardiac Arrhythmia Yes Hypertension Yes Sleep Apnea Yes Gastroesophageal Reflux Yes Disease Other GI Yes: difficulty swallowing pills at times Hx Benign Prostatic Yes Hyperplasia Osteoarthritis Yes Other Musculoskeletal Yes: POLYMYALGIA RHEUMATICA Chemotherapy Yes lung Cancer Hyperlipidemia Hypothyroidism Mild CAD 2012 Surgical History: Lobectomy -RUL 2012. Right total knee 2012. Bilateral cataract surgery 2004 Family History: Brother- coronary stent - Social History Smoking status: Former smoker Quit date: 05/12/77 Substance use type: does not use Alcohol intake frequency: 0-2 drinks per day Household members: spouse Current occupational status: retired Current residence: Apartment/Private Home Medications Home Medications Medication Instructions Recorded Confirmed Type hydroCHLOROthiazide 25 mg PO DAILY #0 04/14/13 01/08/17 History [Hydrochlorothiazide] Acetaminophen/Diphenhydramine 2 tab PO HS #0 06/01/15 01/08/17 History [Tylenol Pm Ex-Strength Caplet] Levothyroxine Sodium 1 tab PO DAILY #30 06/01/15 History Metoprolol Tartrate 12.5 mg PO BIDWM #0 tab 04/01/16 01/08/17 History Rivaroxaban [Xarelto] 1 tab PO DAILY #30 04/01/16 01/08/17 History predniSONE [Prednisone] 1 - 2 tab PO WB #0 04/02/16 01/08/17 History Potassium Chloride ER Tab [K-Dur] 1 tab PO BID 01/08/17 01/08/17 History Rosuvastatin [Crestor] 20 mg PO HS 01/08/17 01/08/17 History Ubidecarenone/Vit E Acet [Co Q-10 1 each PO BID 01/08/17 01/08/17 History 100 mg Softgel] Allergies Allergy/AdvReac Type Severity Reaction Status Date / Time bismuth subsalicylate Allergy Unknown HIVES Verified 04/14/13 10:37 Yyanzmk-Lye-Nry Reductase Allergy Unknown FIBROMYALGI Verified 04/14/13 10:37 Inhibitor Exam Vital signs: Temperature 95.7 F L 01/08/17 08:30 Pulse Rate 65 01/08/17 08:30 Respiratory Rate 22 01/08/17 08:30 Blood Pressure 141/73 H 01/08/17 08:30 Pulse Oximetry 97 01/08/17 08:30 - Constitutional no acute distress, well nourished, well developed, cooperative - Routine HEENT Exam Head: Present: normocephalic ENT: Present: mucous membranes moist - Routine Neck Exam Absent: JVD, carotid bruit - Routine Chest/Breast/Axilla Exam Chest wall: Absent: tenderness - Routine Respiratory Exam Present: CTA bilaterally. Absent: rales, wheezes - Routine Cardiovascular Exam Present: RRR, no murmur. Absent: JVD - Routine Abdominal Exam Present: soft, normoactive bowel sounds - Routine Extremities Exam Present: no edema - Routine Skin Exam Present: intact, dry, warm - Routine Neurological Exam Present: alert, oriented X3 - Routine Psychiatric Exam Present: normal affect, normal thought process Results 01/08/17 08:27 01/09/17 04:01 Cardiac Enzymes 01/08/17 Range/Units 08: AST 20 (17-59) U/L CBC 01/08/17 Range/Units 08:27 WBC 8.1 (4.5-11.0) T/MM3 RBC 4.27 L (4.50-5.90) M/MM3 Hgb 12.8 L (13.5-17.5) GM/DL Hct 39.9 L (41-53) % Plt Count 272 (130-400) T/MM3 Neut # 4.4 (1.8-7.7) T/MM3 Lymph # 2.5 (1-4.8) T/MM3 Whitfield # 0.8 (0-0.8) T/MM3 Eos # 0.4 (0-0.5) T/MM3 Baso # 0.1 (0-0.2) T/MM3 Comprehensive Metabolic Panel 01/08/17 Range/Units 08:27 Sodium 144 (134-144) MEQ/L Potassium 3.4 L (3.6-5) MEQ/L Chloride 106 (98-107) MEQ/L Carbon Dioxide 27 (22-30) MEQ/L BUN 14.0 (9-20) MG/DL Creatinine 0.8 (0.8-1.5) MG/DL Glucose 104 (75-110) MG/DL Calcium 9.8 (8.4-10.2) MG/DL AST 20 (17-59) U/L ALT 24 (21-72) U/L Alkaline Phosphatase 165 H (38-126) U/L Total Protein 7.5 (6.3-8.2) G/DL Albumin 4.3 (3.5-5.0) G/DL Intake and Output 01/07/17 01/08/17 01/08/17 22:59 06:59 14:59 Other: Weight 223 lb 1.725 oz Patient Weight 01/09/17 06:59 Weight 223 lb 1.725 oz Abnormal Lab Results 01/08/17 01/08/17 08:27 08:27 WBC 8.1 RBC 4.27 L Hgb 12.8 L Hct 39.9 L MCV 93.4 MCH 30.0 MCHC 32.1 RDW Std Deviation 44.9 Plt Count 272 MPV 8.9 L Immature Gran % (Auto) 0.7 H Neut % (Auto) 53.9 Lymph % (Auto) 30.4 Whitfield % (Auto) 9.4 H Eos % (Auto) 4.7 H Baso % (Auto) 0.9 Neut # 4.4 Lymph # 2.5 Whitfield # 0.8 Eos # 0.4 Baso # 0.1 Abs Immat Gran (auto) 0.06 H Turbidity < 20 Sodium 144 Potassium 3.4 L Chloride 106 Carbon Dioxide 27 Anion Gap 11 BUN 14.0 Creatinine 0.8 GFR Calculation 93 BUN/Creatinine Ratio 18 Glucose 104 Calculated Osmolality 278 Calcium 9.8 Magnesium 1.9 Total Bilirubin 0.50 Icterus Index < 2 AST 20 ALT 24 Alkaline Phosphatase 165 H Total Protein 7.5 Albumin 4.3 Globulin 3.2 Albumin/Globulin Ratio 1.3 TSH 1.72 Specimen Hemolysis < 15 - Imaging and Cardiology EKG results: image reviewed EKG interpretations - Dysrhythmias Sinus rhythms and dysrhythmias: sinus rhythm Ventricular dysrhythmias: ventricular premature complexes - Blocks, axis, hypertrophy, ST abn AV and intraventricular conduction: 1 AV block Hospital Course This is a general summary of the patient's hospital course. For more details refer to the complete medical record. Time spent with patient: less than 15 minutes Assessment and Plan (1) Paroxysmal atrial fibrillation Current visit: Yes Status: Chronic Holter monitor done in November showed HR from 50-130, PACs PAT, and A Fib. He is being admitted today to observation to Dr. Garcias for antiarrhythmic therapy on Amiodarone. EKG shows SR with 1AVB and occasional PVCs. Start Amiodarone 400mg po bid x 7days, then 200mg daily. Check TSH, MAG. Monitor cardiac telemetry. EKG in am (2) Atherosclerotic heart disease of [place] coronary artery without angina pectoris Current visit: Yes Status: Chronic continue current therapy with routine monitoring (3) Ventricular premature depolarization Current visit: Yes Status: Chronic continue current therapy with routine monitoring (4) Essential (primary) hypertension Current visit: Yes Status: Chronic continue current therapy with routine monitoring (5) Mixed hyperlipidemia Current visit: Yes Status: Chronic patient takes Crestor, PCP manages (6) Sleep apnea, unspecified Current visit: Yes Status: Acute PCP manages - Attestation Attestation Narrative: 01/09/17 10:37 Recommendation After examining the patient I agree with the above assessment. I am involved in the formulation of the patient's plan of care. Sepsis Assessment - Evaluation Sepsis screening result: No Definite Risk
[2017-01-08] MEDS: POM METOPROLOL TARTRATE 25mg TABLET PO SCH (16:55)
[2017-01-08] MEDS ORDERED: POM ROSUVASTATIN 20 MG TABLET PO SCH (21:00)
[2017-01-08] MEDS ORDERED: APAP/DIPHENHYDRAMINE 500 MG/25 MG TABLET PO SCH (21:00)
[2017-01-08 22:24] VITALS: RESP 16
[2017-01-09 07:49] VITALS: BP 136/69; TEMP 95.9; O2SAT 94
[2017-01-09] MEDS ORDERED: PREDNISONE 1 MG PO SCH (08:00)
[2017-01-09] MEDS: AMIODARONE 200 MG TABLET PO SCH (08:46)
[2017-01-09] MEDS: POM METOPROLOL TARTRATE 25mg TABLET PO SCH (08:47)
[2017-01-09 08:53] VITALS: PULSE 60
[2017-01-09] MEDS ORDERED: POM RIVAROXABAN 20 MG TABLET PO SCH (09:00)
--- NOTE | 2017-01-09 10:02 | Discharge Instructions ---
<Lori Robertson - Last Filed: 01/09/17 09:59> Discharge Plan - Med Rec/Dispo Referrals/Follow Up: Michele Garcias MD [Physician] - 01/29/17 9:30 am Dionisio Instructions: A-fib (Atrial Fibrillation) (DC) Prescriptions: New Amiodarone [Pacerone] 200 mg PO DAILY #30 tab Amiodarone [Pacerone] 400 mg PO BID #11 tab Continue Levothyroxine Sodium 1 tab PO DAILY #30 Acetaminophen/Diphenhydramine [Tylenol Pm Ex-Strength Caplet] 2 tab PO HS #0 Rivaroxaban [Xarelto] 1 tab PO DAILY #30 Metoprolol Tartrate 12.5 mg PO BIDWM #0 tab predniSONE [Prednisone] 1 - 2 tab PO WB #0 Rosuvastatin [Crestor] 20 mg PO HS Potassium Chloride ER Tab [K-Dur] 1 tab PO BID Ubidecarenone/Vit E Acet [Co Q-10 100 mg Softgel] 1 each PO BID hydroCHLOROthiazide [Hydrochlorothiazide] 25 mg PO DAILY #0 - Disposition 01 Discharged Home, Self-Care <Michele Garcias - Last Filed: 01/10/17 13:31> Discharge Plan - Med Rec/Dispo - Attestation Attestation Narrative: 01/10/17 13:31 Recommendation After examining the patient I agree with the above assessment. I am involved in the formulation of the patient's plan of care.
[2017-01-15] MEDS ORDERED: AMIODARONE 200 MG TABLET PO SCH (09:30)
== END 2017-01-09 10:30 | disposition home or self-care (01) ==
LOC: SRG
PROVIDERS: ADMIT Internal Medicine Cardiovascular Disease; ATTEND Internal Medicine Cardiovascular Disease